=== PATIENT | male | born 1950 | race Caucasian/White ===

== ENCOUNTER 2017-09-20 11:14 | Inpatient (IN) | payer OTHER ==
[~2017-09-20] VITALS: Ht 172.7 cm; Wt 80.1 kg
[2017-09-20] MEDS ORDERED: PRAVASTATIN SOD40 M2 PO (11:33)
--- NOTE | 2017-09-20 12:29 | ED CARDIAC/CP/PALPITATIONS ---
History of Present Illness General Chief Complaint: General Adult Stated Complaint: SENT TO ED FROM GI LAB FOR BRADYCARDIA Source: patient, family Exam Limitations: no limitations Vital Signs & Intake/Output Vital Signs & Intake/Output Vital Signs Date Time Temp Pulse Resp B/P B/P Pulse O2 O2 Flow FiO2 Mean Ox Delivery Rate 09/22 0800 97 Room Air 09/22 0800 98.0 32 18 98/62 97 Room Air 09/22 0000 97.3 36 16 108/64 97 Room Air 09/21 1600 95 Room Air 09/21 1600 97.9 42 20 110/70 94 Room Air ED Intake and Output 09/22 0000 09/21 1200 Intake Total 1200 Output Total 1050 700 Balance 150 -700 Intake, Oral 1200 Output, Stool 0 Output, Urine 1050 700 Allergies Coded Allergies: NO KNOWN ALLERGIES (10/07/12) Reconcile Medications Pravastatin Sodium 40 MG TABLET 1 TAB PO DAILY CHOLESTEROL (Reported) Triage Note: RECEIVED 67 YO MALE FROM GI LAB SCHEDULED FOR COLONOSCOPY, PT WAS FOUND TO BE IN A JUNCTIONAL RHYTHM. 12 LEAD EKG SHOWS JUNCTIONAL ESCAPE RHYTHM. PT DENIES CHEST PAIN OR SOB, PT REPORTS SOME MILD EXERTIONAL SOB. PT CONNECTED TO TECHNOLOGY ANALYST. Triage Nurses Notes Reviewed? yes Onset: Gradual Timing: single episode today HPI: 67-year-old male with history of COPD, hyperlipidemia presents to emergency department from GI suite for bradycardia. Patient was scheduled for routine colonoscopy today. His heart rate was found to be low prior to initiation of sedation medications for GI procedure. Patient states that his heart rate has been low in the past however never this low, he has never seen a vp ad products and planning before. He states he has had normal EKGs performed at his primary care doctor's offices in the past. Patient currently has no symptoms, he feels in his usual state of health. His pain, dyspnea, lightheadedness, presyncope, abdominal pain. ([place] FOREMAN,Raine Lopez) Past History Travel History Traveled to [place] past 21 day No Medical History Any Pertinent Medical History? see below for history Neurological: NONE EENT: NONE Cardiovascular: hyperlipidemia Respiratory: COPD Gastrointestinal: NONE Hepatic: NONE Renal: NONE Musculoskeletal: NONE Psychiatric: NONE Endocrine: NONE Blood Disorders: NONE Cancer(s): NONE History of MRSA: No History of VRE: No History of CDIFF: No Surgical History Surgical History: non-contributory Psychosocial History Who do you live with Patient/Self Services at Home None What is your primary language Gambian Tobacco Use: Quit >30 days ago Family History Hx Contributory? No (Raine Hernandez) Review of Systems Review of Systems Constitutional: Reports: no symptoms. EENTM: Reports: no symptoms. Respiratory: Reports: no symptoms. Cardiovascular: Reports: see HPI. GI: Reports: no symptoms. Genitourinary: Reports: no symptoms. Musculoskeletal: Reports: no symptoms. Skin: Reports: no symptoms. Neurological/Psychological: Reports: no symptoms. Hematologic/Endocrine: Reports: no symptoms. Immunologic/Allergic: Reports: no symptoms. All Other Systems: Reviewed and Negative (Raine Hernandez) Physical Exam Physical Exam General Appearance: well developed/nourished, no apparent distress, alert, awake Head: atraumatic, normal appearance Eyes: Bilateral: normal appearance. Ears, Nose, Throat: hearing grossly normal Neck: normal inspection, supple, full range of motion Respiratory: normal breath sounds, no respiratory distress, lungs clear Cardiovascular: normal peripheral pulses, bradycardia Peripheral Pulses: 2+ radial (R), 2+ radial (L) Gastrointestinal: normal bowel sounds, soft, non-tender, no organomegaly Back: normal inspection, normal range of motion Extremities: normal inspection Neurologic/Psych: awake, alert, oriented x 3 Skin: intact, normal color, warm/dry Core Measures ACS in differential dx? Yes CVA/TIA Diagnosis No Sepsis Present: No Sepsis Focused Exam Completed? No (Raine Hernandez) Progress Differential Diagnosis: AMI, atrial fibrillation, hyperthyroid, WPW syndrome, electrolyte abnormality, thyroid disorder Plan of Care: Orders Procedure Date/time Status MAGNESIUM 09/23 0600 Active BASIC ELECTROLYTES PLUS BUN&CR 09/23 0600 Active EKG 09/22 1253 Active Transfer patient to 09/22 UNK Active Current Medications Sig/Allan Start time Last Medication Dose Stop Time Status Admin Dextrose/Sodium 1,000 ML Q13H 09/22 0815 AC Chloride (D5W-1/2 Normal Saline 1000ML) Atorvastatin Calcium 40 MG 1700 09/20 1700 AC 09/21 (Lipitor) 1551 Acetaminophen 650 MG Q6PRN PRN 09/20 1645 AC (Tylenol) Acetaminophen 1,000 MG Q6P PRN 09/20 1645 AC (Ofirmev) N/A 1 UNIT (No Carrier) Atropine Sulfate 0.5 MG ONE PRN 09/20 1645 AC (Atropine) Morphine Sulfate 2 MG Q6P PRN 09/20 1645 AC (MORPHINE SULFATE) Enoxaparin Sodium 40 MG Q24H 09/20 1637 AC 09/21 (Lovenox) 1551 Laboratory Tests 09/22/17 0445: Anion Gap 8, Estimated GFR > 60, Glucose 115 H, Calcium 8.9, Phosphorus 4.2, Magnesium 1.9, Total Bilirubin 1.0, AST 19, ALT 43, Albumin 3.[address] Martinez regarding this patient - he recommends telemetry observation. Patient is currently asymptomatic, in no acute distress, sitting in stretcher comfortably. No acute intervention required at this time. Dr. Dumont spoke with Dr. Adamson regarding telemetry observation. Following evaluation by hospitalist, decision made to upgrade this patient to ICU given worsening bradycardia. Diagnostic Imaging: Viewed by Me: Radiology Read. Discussed w/RAD: Radiology Read. CXR Impression: PATIENT: GEOVANI KINCAID PRESENT AGE: 67 PATIENT ACCOUNT NO: [id number] : 51 LOCATION: [facility] ORDERING PHYSICIAN: Raine FOREMAN SERVICE DATE: 09/20/17123 EXAM TYPE: RAD - XRY-PORTABLE CHEST XRAY EXAMINATION: XR PORTABLE CHEST CLINICAL INFORMATION: Bradycardia. COMPARISON: 11/08/2012 TECHNIQUE: Portable frontal view of the chest was obtained. FINDINGS: Interval resolution of the curvilinear opacity from the left lung. No new focal consolidation. No pleural effusion or pneumothorax. Heart size is normal. No acute osseous abnormality. EKG wires project over the chest. IMPRESSION: No acute radiographic abnormality. DICTATED BY: Rajwinder Perry MD DATE/TIME DICTATED:09/20/171403 FRAMING MECHANIC:THOMAS DATE/TIME TRANSCRIBED:09/20/171403 CONFIDENTIAL, DO NOT COPY WITHOUT APPROPRIATE AUTHORIZATION. <Electronically signed in Other Vendor System> SIGNED BY: Rajwinder Perry MD 09/20/17 9948 Initial ED EKG: JUNCTIONAL ESCAPE RHYTHM @34BPM Prior EKG: changed (10/07/12) ([place] FOREMAN,Raine Lopez) Departure Departure Disposition: STILL A PATIENT Condition: Stable Clinical Impression Primary Impression: Ventricular escape rhythm Secondary Impressions: Bradycardia Referrals: Claude Thomas MD (PCP/Family) Departure Forms: Customer Survey General Discharge Information Admission Note Spoke With: Eliu Adamson MD Documentation of Exam: Documentation of any treatments & extenuating circumstances including Concerns Regarding Discharge (functional status, medication knowledge or non-compliance, living conditions, etc.) that warrant an admission rather than observation: [ Bradycardia with junctional escape rhythm requiring ICU monitoring, cardiology consult, trend EKGs and troponins, premature discharge medically unsafe.] (Raine Hernandez) PA/DIRECTOR STARS Co-Sign Statement Statement: ED Attending supervision documentation- [X] I saw and evaluated the patient. I have also reviewed all the pertinent lab results and diagnostic results. I agree with the findings and the plan of care as documented in the PA's/DIRECTOR STARS's documentation. [] I have reviewed the ED Record and agree with the PA's/DIRECTOR STARS's documentation. [] Additions or exceptions (if any) to the PAs/DIRECTOR STARS's note and plan are summarized below: [] (Vineet Dumont DO) Critical Care Note Critical Care Note Critical Care Time: 30-74 min (Raine Hernandez) Spoke with Dr. Martinez regarding this patient - he recommends telemetry observation. Patient is currently asymptomatic, in no acute distress, sitting in stretcher comfortably. No acute intervention required at this time. Dr. Dumont spoke with Dr. Adamson regarding telemetry observation. Following evaluation by hospitalist, decision made to upgrade this patient to ICU given worsening bradycardia. (Raine Hernandez) (Vineet Dumont DO) Departure Departure Disposition: STILL A PATIENT Condition: Stable Clinical Impression Primary Impression: Ventricular escape rhythm Secondary Impressions: Bradycardia Referrals: Claude Thomas MD (PCP/Family) Departure Forms: Customer Survey General Discharge Information Admission Note Spoke With: Eliu Adamson MD Documentation of Exam: Documentation of any treatments & extenuating circumstances including Concerns Regarding Discharge (functional status, medication knowledge or non-compliance, living conditions, etc.) that warrant an admission rather than observation: [ Bradycardia with junctional escape rhythm requiring ICU monitoring, cardiology consult, trend EKGs and troponins, premature discharge medically unsafe.] (Raine Hernandez) PA/DIRECTOR STARS Co-Sign Statement Statement: ED Attending supervision documentation- [X] I saw and evaluated the patient. I have also reviewed all the pertinent lab results and diagnostic results. I agree with the findings and the plan of care as documented in the PA's/DIRECTOR STARS's documentation. [] I have reviewed the ED Record and agree with the PA's/DIRECTOR STARS's documentation. [] Additions or exceptions (if any) to the PAs/DIRECTOR STARS's note and plan are summarized below: [] (Vineet Dumont DO) Critical Care Note Critical Care Note Critical Care Time: 30-74 min ([place] FOREMAN,Raine Lopez)
[2017-09-20 12:44] LABS: ABSOLUTE BASOPHIL COUNT 0 /CUMM (0.0-0.2); ABSOLUTE EOSINOPHIL COUNT 0.1 /CUMM (0.0-0.7); ABSOLUTE LYMPH COUNT 1.5 /CUMM (1.2-3.4); ABSOLUTE MONOCYTE COUNT 0.4 /CUMM (0.10-0.60); BASOPHIL % 0.5 % (0.0-2.0); EOSINOPHIL % 2.6 % (0-5); GRANULOCYTE % 58.9 % (42.2-75.2); HEMATOCRIT 42.2 % (42-52); MEAN CORPUSCULAR HGB 30.4 PG (27.0-31.0); MEAN CORPUSCULAR HGB CONC 34.9 G/DL (33.0-37.0); MEAN CORPUSCULAR VOLUME 87.2 FL (80.0-94.0); MEAN PLATELET VOLUME 8.1 FL (7.4-10.4); PLATELET COUNT 205 /CUMM (130-400); RBC DISTRIBUTION WIDTH 13.6 % (11.5-14.5); RED BLOOD CELL CT 4.84 /CUMM (4.70-6.10)
[2017-09-20 12:59] LABS: PTT 31 SEC (25-37)
--- NOTE | 2017-09-20 14:15 | History & Physical ---
Bhupendra Guadalupe 09/20/17 1415: General Information and HPI Allergies/Medications Allergies: Coded Allergies: NO KNOWN ALLERGIES (10/07/12) Home Med list Pravastatin Sodium 40 MG TABLET 1 TAB PO DAILY CHOLESTEROL (Reported) Past History Travel History Traveled to [place] past 21 day No Medical History Neurological: NONE EENT: NONE Cardiovascular: hyperlipidemia Respiratory: COPD Gastrointestinal: NONE Hepatic: NONE Renal: NONE Musculoskeletal: NONE Psychiatric: NONE Endocrine: NONE Blood Disorders: NONE Cancer(s): NONE History of MRSA: No History of VRE: No History of CDIFF: No Past Family/Social History Psychosocial History Services at Home: None Core Measures/Misc (11/13) Sepsis (View protocol) If YES complete Sepsis Event Note If YES complete Sepsis Event Note Shoshana Calderon MD 09/20/17 1442: Core Measures/Misc (11/13) Sepsis (View protocol) If YES complete Sepsis Event Note If YES complete Sepsis Event Note Resident Review Statement Other Findings: 67-year-old gentleman with past medical history of COPD, hyperlipidemia was sent from GI GI suite with EKG evidence of junctional rhythm. Patient was scheduled for colonoscopy today. Patient last admission at [facility] for pneumonia. Admission vital signs Temperature 98, pulse 42, respiratory rate 18, blood pressure 158/79, saturating 98 at room air Admission labs WBC 5, hemoglobin 14.7, platelet 205, sodium 141, potassium 4.2, BUN 12, creatinine 0.8, troponin 0 0.01 Pam Sandhu MD 09/20/17 1604: Core Measures/Misc (11/13) Sepsis (View protocol) If YES complete Sepsis Event Note If YES complete Sepsis Event Note Attending MD Review Statement Attending Statement Attending MD Statement: examined this patient, discuss w/resident/PA/PROCESS EXPERT, agreed w/resident/PA/PROCESS EXPERT, reviewed EMR data (avail), discussed with nursing, discussed with case mgmt, amended to note Attending Assessment/Plan: 67-year-old male with history of dyslipidemia presented to the endoscopy suite for routine follow-up colonoscopy. Colonoscopy was for follow-up of benign polyps noted on previous colonoscopy. In the unit he was found to be bradycardic with heart rate in the 30s to 40s. This was confirmed on EKG and was sent to the emergency room for further evaluation. Patient has been asymptomatic all through. He does admit that he has history of bradycardia. He however has not been evaluated by senior cisco network engineer in the past. He denies any tick bites. He is not on any medication that would cause bradycardia. TSH is within normal limits.Denies any dizziness. Denies any palpitations. Denies any chest pains. While evaluating him desaturated was predominantly 30s occasionally in the 20s. On examination he has no jugular venous distention. No audible murmur. Lungs are clear bilaterally. He has no peripheral edema. Labs showed no electrolyte abnormalities. EKG shows junctional rhythm. Plan: -Admit to the intensive care unit -Place pacer pads -Check Lyme titer -Trend troponins. Obtain echocardiogram. Urgent Cardiology consultation. -Keep n.p.o. past midnight for possible pacemaker in the morning..
--- NOTE | 2017-09-20 14:28 | RADIOLOGY REPORT ---
EXAMINATION: XR PORTABLE CHEST CLINICAL INFORMATION: Bradycardia. COMPARISON: 11/08/2012 TECHNIQUE: Portable frontal view of the chest was obtained. FINDINGS: Interval resolution of the curvilinear opacity from the left lung. No new focal consolidation. No pleural effusion or pneumothorax. Heart size is normal. No acute osseous abnormality. EKG wires project over the chest. IMPRESSION: No acute radiographic abnormality.
--- NOTE | 2017-09-20 16:40 | History & Physical ---
Shoshana Calderon MD 09/20/17 1640: General Information and HPI MD Statement: I have seen and personally examined GEOVANI KINCAID and documented this H&P. The patient is a 67 year old M who presented with a patient stated chief complaint of [bradycardia]. Source of Information: patient, family History of Present Illness: 67-year-old gentleman with past medical history of hyperlipidemia was sent from the GI suite with EKG finding of junctional escape rhythm. Apparently patient was in usual state of health until today morning, went to the GI suite for his routine colonoscopy. During the time of procedure patient had bradycardia and the EKG rhythm showed junctional escape rhythm and hence he was sent to ED for further evaluation. Patient denies chest pain, nausea, vomiting, palpitation, diaphoresis, shortness of breath, fever, chills, recent tick bite, sick contacts , travel, abdominal pain, constipation, diarrhea, hematuria. Patient has never seen a senior maintenance mechanic in the past. According to the patient he says he has bradycardia since adolescent age. Allergies/Medications Allergies: Coded Allergies: NO KNOWN ALLERGIES (10/07/12) Home Med list Pravastatin Sodium 40 MG TABLET 1 TAB PO DAILY CHOLESTEROL (Reported) Past History Travel History Traveled to [place] past 21 day No Medical History Neurological: NONE EENT: NONE Cardiovascular: hyperlipidemia Respiratory: COPD Gastrointestinal: NONE Hepatic: NONE Renal: NONE Musculoskeletal: NONE Psychiatric: NONE Endocrine: NONE Blood Disorders: NONE Cancer(s): NONE History of MRSA: No History of VRE: No History of CDIFF: No Surgical History Surgical History: none Past Family/Social History Family History Relations & Conditions if any Relation not specified for: *No pertinent family history Psychosocial History Where do you live? Home Who Do You Live With? child Services at Home: None Primary Language: Serbian Smoking Status: Never Smoked ETOH Use: occasional use Functional Ability ADLs Independent: dressing, eating, toileting, bathing. Ambulation: independent IADLs Independent: shopping, housework, finances, food prep, telephone, transportation , medication admin. Review of Systems Review of Systems Constitutional: Reports: no symptoms. Cardiovascular: Reports: no symptoms. Respiratory: Reports: no symptoms. Genitourinary: Reports: no symptoms. Exam & Diagnostic Data Last 24 Hrs of Vital Signs/I&O Vital Signs Date Time Temp Pulse Resp B/P B/P Pulse O2 O2 Flow FiO2 Mean Ox Delivery Rate 09/20 1504 97.5 40 18 142/84 97 Room Air 09/20 1237 98 Room Air 09/20 1127 98.0 42 18 158/79 98 Room Air Intake & Output 09/20 1600 09/20 0800 09/20 0000 Intake Total 1000 Output Total Balance 1000 Intake, IV 1000 Patient 185 lb Weight Weight Estimated Measurement Method Physical Exam General Appearance Alert, Oriented X3, Cooperative, No Acute Distress HEENT Atraumatic Cardiovascular Regular Rate, Normal S1, Normal S2 Lungs Clear to Auscultation Abdomen Normal Bowel Sounds, Soft, No Tenderness, No Hepatospenomegaly Neurological Normal Speech, Strength at 5/5 X4 Ext, Normal Tone, Sensation Intact, Cranial Nerves 3-12 NL Extremities No Cyanosis, No Edema Last 24 Hrs of Labs/Wally: Laboratory Tests 09/20/17 1234: Anion Gap 10, Estimated GFR > 60, BUN/Creatinine Ratio 15.0, Glucose 105 H, Calcium 9.1, Magnesium 1.9, Total Bilirubin 1.6 H, AST 27, ALT 54, Alkaline Phosphatase 53, Troponin I < 0.01, Total Protein 5.9 L, Albumin 3.5, Globulin 2.4, Albumin/Globulin Ratio 1.5, TSH 1.280, Free T4 0.95, PT 12.0, INR 1.10, APTT 31, CBC w Diff NO MAN DIFF REQ, RBC 4.84, MCV 87.2, MCH 30.4, MCHC 34.9, RDW 13.6, MPV 8.1, Gran % 58.9, Lymphocytes % 29.1, Monocytes % 8.9, Eosinophils % 2.6, Basophils % 0.5, Absolute Granulocytes 3.0, Absolute Lymphocytes 1.5, Absolute Monocytes 0.4, Absolute Eosinophils 0.1, Absolute Basophils 0, Lyme Disease Antibody Cancelled Diagnostic Data EKG Results JUNCTIONAL ESCAPE RYTHM HR-30S Assessment/Plan Assessment: 67-year-old gentleman with past medical history of hyperlipidemia was sent from the GI suite with EKG finding of junctional escape rhythm. Patient last admission at [facility] for pneumonia in 2012 Admission vital signs Temperature 98, pulse 42, respiratory rate 18, blood pressure 158/79, saturating 98 at room air Admission labs WBC 5, hemoglobin 14.7, platelet 205, sodium 141, potassium 4.2, BUN 12, creatinine 0.8, troponin 0.01 EKG-junctional escape rhythm with a heart rate 30s. Assessment and plan 1. Bradycardia-patient needs echocardiogram and telemetry monitoring. Cardiology consulted who suggested to keep him n.p.o. for possible pacemaker. We will keep pacer pads and atropine by the bedside. We will check a Lyme titer. Follow-up troponin and EKG. Echocardiogram ordered. 2. Hyperlipidemia-continue statin. Patient will be admitted in ICU for close monitoring. Code-full code Diet-heart healthy diet N.p.o. from midnight DVT prophylaxis-Lovenox As Ranked By This Provider Problem List: 1. Ventricular escape rhythm 2. Bradycardia Core Measures/Misc (11/13) Acute Coronary Syndrome ACS Diagnosis: No Congestive Heart Failure Congestive Heart Failure Diagnosis No Cerebrovascular Accident CVA/TIA Diagnosis: No VTE (View Protocol) VTE Risk Factors Age>40 No Mechanical VTE Prophylaxis d/t Other No VTE Pharm Prophylaxis d/t Other Sepsis (View protocol) Sepsis Present: No If YES complete Sepsis Event Note If YES complete Sepsis Event Note Pam Sandhu MD 09/21/17 0125: Core Measures/Misc (11/13) Sepsis (View protocol) If YES complete Sepsis Event Note If YES complete Sepsis Event Note Attending MD Review Statement Attending Statement Attending MD Statement: examined this patient, discuss w/resident/PA/WATER TREATMENT PLANT SUPERVISOR, agreed w/resident/PA/WATER TREATMENT PLANT SUPERVISOR, reviewed EMR data (avail), discussed with nursing, reviewed images, amended to note Attending Assessment/Plan: 67-year-old male with history of dyslipidemia presented to the endoscopy suite for routine follow-up colonoscopy. Colonoscopy was for follow-up of benign polyps noted on previous colonoscopy. In the unit he was found to be bradycardic with heart rate in the 30s to 40s. This was confirmed on EKG and was sent to the emergency room for further evaluation. Patient has been asymptomatic all through. He does admit that he has history of bradycardia. He however has not been evaluated by senior maintenance mechanic in the past. He denies any tick bites. He is not on any medication that would cause bradycardia. TSH is within normal limits.Denies any dizziness. Denies any palpitations. Denies any chest pains. While evaluating him desaturated was predominantly 30s occasionally in the 20s. On examination he has no jugular venous distention. No audible murmur. Lungs are clear bilaterally. He has no peripheral edema. Labs showed no electrolyte abnormalities. EKG shows junctional rhythm. Plan: -Admit to the intensive care unit -Place pacer pads -Check Lyme titer -Trend troponins. Obtain echocardiogram. Urgent Cardiology consultation. -Keep n.p.o. past midnight for possible pacemaker in the morning..
--- NOTE | 2017-09-20 20:06 | Cons- Cardiology ---
General Information and HPI Consulting Request Date of Consult: 09/20/17 Requested By: Pam Sandhu MD Reason for Consult: Bradycardia History of Present Illness: The patient is a 67-year-old male with history of hyperlipidemia who is admitted for bradycardia. He was in the GI suite preparing for a routine colonoscopy when he was found to be in a junctional bradycardia with rate in the 30s. The procedure was canceled and he was transferred to the emergency room. During evaluation in the emergency department he continued to be in a junctional rhythm , and his heart rate was observed to drop as low as the high 20s. He notes occasional lightheadedness and dizziness, however he has not been symptomatic today. No syncope. No orthopnea. No diaphoresis. No nausea or vomiting. No palpitations. No prior history of known cardiac disease. The patient reports that he was advised by his primary care physician that his heart rate was relatively slow for the past year or two. Allergies/Medications Allergies: Coded Allergies: NO KNOWN ALLERGIES (10/07/12) Home Med List: Pravastatin Sodium 40 MG TABLET 1 TAB PO DAILY CHOLESTEROL (Reported) Current Medications: Current Medications Sig/Allan Start time Last Medication Dose Route Stop Time Status Admin Acetaminophen 650 MG Q6PRN PRN 09/20 1645 AC PO Acetaminophen 1,000 MG Q6P PRN 09/20 1645 AC N/A 1 UNIT IV Atorvastatin Calcium 40 MG 1700 09/20 1700 AC 09/20 PO 1820 Atropine Sulfate 0.5 MG ONE PRN 09/20 1645 AC IV Enoxaparin Sodium 0 .STK-MED ONE 09/20 1733 DC SC Enoxaparin Sodium 40 MG Q24H 09/20 1637 AC 09/20 SC 1820 Morphine Sulfate 2 MG Q6P PRN 09/20 1645 AC IV Review of Systems Review of Systems: No fever. No chills. No hemoptysis. No ematemesis. All other systems were reviewed, and were noted to be negative. Past History Travel History Traveled to [place] past 21 day No Medical History Blood Transfusion Hx: No Neurological: NONE EENT: NONE Cardiovascular: hyperlipidemia Respiratory: COPD Gastrointestinal: NONE Hepatic: NONE Renal: NONE Musculoskeletal: NONE Psychiatric: NONE Endocrine: NONE Blood Disorders: NONE Cancer(s): NONE Surgical History Surgical History: non-contributory Family History Relations & Conditions If Any: MOTHER Heart disease Psychosocial History Where Do You Live? Home Who Do You Live With? child Services at Home: None Primary Language: Georgian Smoking Status: Former Smoker ETOH Use: occasional use Functional Ability ADLs Independent: dressing, eating, toileting, bathing. Ambulation: independent IADLs Independent: shopping, housework, finances, food prep, telephone, transportation , medication admin. Exam & Diagnostic Data Vital Signs and I&O Vital Signs Date Time Temp Pulse Resp B/P B/P Pulse O2 O2 Flow FiO2 Mean Ox Delivery Rate 09/20 1855 97 Room Air 09/20 1748 96 Room Air 09/20 1747 36 18 146/86 96 Room Air 09/20 1504 97.5 40 18 142/84 97 Room Air 09/20 1237 98 Room Air 09/20 1127 98.0 42 18 158/79 98 Room Air Intake & Output 09/20 1600 09/20 0800 09/20 0000 09/19 1600 09/19 0800 09/19 0000 Intake Total 1000 Output Total Balance 1000 Intake, IV 1000 Patient 185 lb Weight Weight Estimated Measurement Method Physical Exam: Gen: The patient is in no acute distress HEENT: Normal nose, ears, and oropharynx. Pupils equal bilaterally. Conjunctiva normal. Neck: Supple with no JVD, no masses, and no thyromegaly Lungs: Clear to auscultation with normal respiratory effort Heart: luis, S1, S2, no murmurs. No peripheral edema, 2+ pulses in the lower extremities bilaterally Abdomen: Soft, nontender, no masses. No hepatomegaly. No splenomegaly Extremities: No clubbing or cyanosis. Normal muscle strength in the upper and lower extremities Skin: Normal skin turgor with no skin ulcers or lesions noted. Neuro: Cranial nerves intact. Sensation intact Psych: Alert and oriented x 3 with appropriate affect Labs/Wally Results: Laboratory Tests 09/20 09/20 1850 1234 Chemistry Sodium (137 - 145 mmol/L) 141 Potassium (3.5 - 5.1 mmol/L) 4.2 Chloride (98 - 107 mmol/L) 107 Carbon Dioxide (22 - 30 mmol/L) 25 Anion Gap (5 - 16) 10 BUN (9 - 20 mg/dL) 12 Creatinine (0.7 - 1.2 mg/dL) 0.8 Estimated GFR (>60 ml/min) > 60 BUN/Creatinine Ratio (7 - 25 %) 15.0 Glucose (65 - 99 mg/dL) 105 H Calcium (8.4 - 10.2 mg/dL) 9.1 Magnesium (1.6 - 2.3 mg/dL) 1.9 Total Bilirubin (0.2 - 1.3 mg/dL) 1.6 H AST (17 - 59 U/L) 27 ALT (21 - 72 U/L) 54 Alkaline Phosphatase (< 127 U/L) 53 Troponin I (<0.11 ng/ml) Pending < 0.01 Total Protein (6.3 - 8.2 g/dL) 5.9 L Albumin (3.5 - 5.0 g/dL) 3.5 Globulin (1.9 - 4.2 gm/dL) 2.4 Albumin/Globulin Ratio (1.1 - 2.2 %) 1.5 TSH (0.270 - 4.200 uIU/mL) 1.280 Free T4 (0.78 - 2.44 ng/dL) 0.95 Coagulation PT (9.4 - 12.5 SEC) 12.0 INR (0.90 - 1.17) 1.10 APTT (25 - 37 SEC) 31 Hematology CBC w Diff NO MAN DIFF REQ WBC (4.8 - 10.8 /CUMM) 5.0 RBC (4.70 - 6.10 /CUMM) 4.84 Hgb (14.0 - 18.0 G/DL) 14.7 Hct (42 - 52 %) 42.2 MCV (80.0 - 94.0 FL) 87.2 MCH (27.0 - 31.0 PG) 30.4 MCHC (33.0 - 37.0 G/DL) 34.9 RDW (11.5 - 14.5 %) 13.6 Plt Count (130 - 400 /CUMM) 205 MPV (7.4 - 10.4 FL) 8.1 Gran % (42.2 - 75.2 %) 58.9 Lymphocytes % (20.5 - 51.1 %) 29.1 Monocytes % (1.7 - 9.3 %) 8.9 Eosinophils % (0 - 5 %) 2.6 Basophils % (0.0 - 2.0 %) 0.5 Absolute Granulocytes (1.4 - 6.5 /CUMM) 3.0 Absolute Lymphocytes (1.2 - 3.4 /CUMM) 1.5 Absolute Monocytes (0.10 - 0.60 /CUMM) 0.4 Absolute Eosinophils (0.0 - 0.7 /CUMM) 0.1 Absolute Basophils (0.0 - 0.2 /CUMM) 0 Serology Lyme Disease Antibody Cancelled Diagnostic Data EKG Results EKG tracings independently reviewed, and reveals junctional escape rhythm at a rate of 34 bpm, left axis deviation, nonspecific ST abnormality CXR Results Negative Assessment/Plan Assessment/Plan The patient is a 67-year-old male with no cardiac history who presented for routine colonoscopy and was found to be in a junctional escape rhythm in the 30s. His heart rate has occasionally dropped to the high 20s. He has a remote history of extensive alcohol abuse, however he is not currently drinking. He is currently asymptomatic, however he does note intermittent lightheadedness and dizziness which is most likely secondary to episodes of bradycardia. Recommendations: * Monitor in ICU * Apply transcutaneous pacing pads but avoid pacing as the patient becomes symptomatic. * If the patient becomes symptomatic or if he has prolonged periods of heart rates less than 30, would consider starting a dopamine drip * N.p.o. after midnight * Possible permanent pacemaker placement tomorrow * Echocardiogram Consult Acknowledgment - Thank you for your consult request.
[2017-09-21] VITALS: BP 132/68
[2017-09-21 08:00] VITALS: BP 1616/80
--- NOTE | 2017-09-21 10:12 | PN- Cardiology ---
Subjective Subjective: Feeling mostly well. He has been staying in bed, and did not have any symptoms overnight. He notes that recently as an outpatient he has been having intermittent lightheadedness with standing up quickly or walking. He remains in junctional escape rhythm alternating with sinus rhythm. Rate is primarily in the 30s, occasionally dropping into the high 20s. No chest pain. No palpitations. No nausea or vomiting. No shortness of breath. Objective Vital Signs and I&Os Vital Signs Date Time Temp Pulse Resp B/P B/P Pulse O2 O2 Flow FiO2 Mean Ox Delivery Rate 09/21 0800 95 Room Air 09/21 0800 96.9 36 20 1616/80 95 Room Air 09/21 0000 98.4 44 14 132/68 98 Room Air 09/20 1855 97 Room Air 09/20 1748 96 Room Air 09/20 1747 36 18 146/86 96 Room Air 09/20 1504 97.5 40 18 142/84 97 Room Air 09/20 1237 98 Room Air 09/20 1127 98.0 42 18 158/79 98 Room Air Intake & Output 09/21 1600 09/21 0800 09/21 0000 09/20 1600 09/20 0800 09/20 0000 Intake Total 360 1000 Output Total 700 450 Balance -700 -90 1000 Intake, IV 1000 Intake, Oral 360 Output, Urine 700 450 Patient 194 lb 185 lb Weight Weight Bed scale Estimated Measurement Method Physical Exam: Gen: The patient is in no acute distress HEENT: Normal nose, ears, and oropharynx. Pupils equal bilaterally. Conjunctiva normal. Neck: Supple with no JVD, no masses, and no thyromegaly Lungs: Clear to auscultation with normal respiratory effort Heart: luis, S1, S2, no murmurs. No peripheral edema, 2+ pulses in the lower extremities bilaterally Abdomen: Soft, nontender, no masses. No hepatomegaly. No splenomegaly Extremities: No clubbing or cyanosis. Normal muscle strength in the upper and lower extremities Skin: Normal skin turgor with no skin ulcers or lesions noted. Neuro: Cranial nerves intact. Sensation intact Current Medications: Current Medications Sig/Allan Start time Last Medication Dose Route Stop Time Status Admin Acetaminophen 650 MG Q6PRN PRN 09/20 1645 AC PO Acetaminophen 1,000 MG Q6P PRN 09/20 1645 AC N/A 1 UNIT IV Atorvastatin Calcium 40 MG 1700 09/20 1700 AC 07/25 PO 1820 Atropine Sulfate 0.5 MG ONE PRN 09/20 1645 AC IV Enoxaparin Sodium 0 .STK-MED ONE 09/20 1733 DC SC Enoxaparin Sodium 40 MG Q24H 09/20 1637 AC 09/20 SC 1820 Morphine Sulfate 2 MG Q6P PRN 09/20 1645 AC IV Results Last 48 Hrs of Labs/Mics: Laboratory Tests 09/21/17 0525: Anion Gap 8, Estimated GFR > 60, Glucose 107 H, Calcium 9.0, Phosphorus 4.2, Magnesium 1.9, Total Bilirubin 1.2, AST 23, ALT 46, Albumin 3.5 09/21/17 0100: Troponin I < 0.01, Lyme Disease Antibody Cancelled 09/20/17 1850: Troponin I < 0.01 09/20/17 1234: Lyme Disease Antibody Pending 09/20/17 1234: Anion Gap 10, Estimated GFR > 60, BUN/Creatinine Ratio 15.0, Glucose 105 H, Calcium 9.1, Magnesium 1.9, Total Bilirubin 1.6 H, AST 27, ALT 54, Alkaline Phosphatase 53, Troponin I < 0.01, Total Protein 5.9 L, Albumin 3.5, Globulin 2.4, Albumin/Globulin Ratio 1.5, TSH 1.280, Free T4 0.95, PT 12.0, INR 1.10, APTT 31, CBC w Diff NO MAN DIFF REQ, RBC 4.84, MCV 87.2, MCH 30.4, MCHC 34.9, RDW 13.6, MPV 8.1, Gran % 58.9, Lymphocytes % 29.1, Monocytes % 8.9, Eosinophils % 2.6, Basophils % 0.5, Absolute Granulocytes 3.0, Absolute Lymphocytes 1.5, Absolute Monocytes 0.4, Absolute Eosinophils 0.1, Absolute Basophils 0, Lyme Disease Antibody Cancelled Assessment/Plan Assessment/Plan Assessment: * Junctional bradycardia with heart rate dropping into the 20s, intermittently symptomatic Plan: * Continue to monitor in ICU * Pacemaker scheduled for tomorrow at 12:[address] Thomas * N.p.o. after midnight * Echocardiogram * Check Lyme titer * If the patient becomes symptomatic or if he has prolonged periods of heart rates less than 30, would consider starting a dopamine drip Continue telemetry? Yes
--- NOTE | 2017-09-21 10:53 | PN- Resident CRCU ---
Subjective HPI/CRCU Issues: Bradycardia 24 Hour Events: No acute events overnight. Patient has been in bradycardia but remained asymptomatic. Overnight his heart rate transiently dropped below 30. Objective Vital Signs & I&O Last 8 Hrs of Vitals and I&O: . Exam General Appearance: well developed/nourished, no apparent distress, alert, awake , comfortable Head: atraumatic, normal appearance Respiratory: normal breath sounds, chest non-tender, lungs clear Cardiovascular: bradycardia Gastrointestinal: soft, non-tender Extremities: no edema Cranial Nerves: normal hearing, normal speech Skin: intact, normal color Skin Temp/Moisture Exam: Warm/Dry Sepsis Skin Exam (color): Normal for Ethnicity Current Medications: Current Medications Sig/Allan Start time Last Medication Dose Route Stop Time Status Admin Acetaminophen 650 MG Q6PRN PRN 09/20 1645 AC PO Acetaminophen 1,000 MG Q6P PRN 09/20 1645 AC N/A 1 UNIT IV Atorvastatin Calcium 40 MG 1700 09/20 1700 AC 09/20 PO 1820 Atropine Sulfate 0.5 MG ONE PRN 09/20 1645 AC IV Enoxaparin Sodium 0 .STK-MED ONE 09/20 1733 DC SC Enoxaparin Sodium 40 MG Q24H 09/20 1637 AC 09/20 SC 1820 Morphine Sulfate 2 MG Q6P PRN 09/20 1645 AC IV Impression/Plan Impression/Problem List Impression: 67-year-old gentleman with past medical history of hyperlipidemia was sent from the GI suite with EKG finding of junctional escape rhythm. During the time of procedure the patient was noticed to be bradycardic and the EKG rhythm showed junctional escape rhythm and hence he was sent to ED for further evaluation. Assessment: 1. Junctional Bradycardia 2. History of Hyperlipidemia Plan: * Continue monitoring in the ICU for now. * His Lyme titre was negative * Keep pacer pads on * If the patient becomes symptomatic or his heart rate remains below 30 for prolonged period, he can be started on dopamine * Pacemaker placement in OR tomorrow. * He will be NPO after midnight for the procedure * Echocardiogram - pending * Diet: Regular * DVT Prophylaxis: SC Enoxaparin * Code Status: Full Code Problem List: 1. Bradycardia Pain Ratin Tomorrow's Labs & Rationales: ICU bundle Plan DVT/Prophylaxis: mechanical
[2017-09-21 16:00] VITALS: BP 110/70
--- NOTE | 2017-09-21 16:15 | Cons- Thoracic Surgery ---
General Information and HPI Consulting Request Date of Consult: 09/21/17 Requested By: Jaiden Martinez MD Reason for Consult: Bradycardia, evaluate for permanent pacemaker placement Source of Information: patient, old records, PCP Exam Limitations: no limitations History of Present Illness: The patient is a 67-year-old gentleman admitted from the GI suite with a junctional bradycardia. Patient has had heart rates below 30 while on observation with occasional junctional rhythm mixing with a significant sinus bradycardia. He is admitted for observation referral is made for placement of a permanent pacemaker. Of note is that the patient has been told by his primary care physician in the past that his heart rate is low along the line the type of rate seen in athletes. No recommendation was ever made for him to see cardiology evaluation. Allergies/Medications Allergies: Coded Allergies: NO KNOWN ALLERGIES (10/07/12) Home Med List: Pravastatin Sodium 40 MG TABLET 1 TAB PO DAILY CHOLESTEROL (Reported) Current Medications: Current Medications Sig/Allan Start time Last Medication Dose Route Stop Time Status Admin Acetaminophen 650 MG Q6PRN PRN 09/20 1645 AC PO Acetaminophen 1,000 MG Q6P PRN 09/20 1645 AC N/A 1 UNIT IV Atorvastatin Calcium 40 MG 1700 09/20 1700 AC 09/21 PO 1551 Atropine Sulfate 0.5 MG ONE PRN 09/20 1645 AC IV Enoxaparin Sodium 0 .STK-MED ONE 09/20 1733 CAN SC Enoxaparin Sodium 40 MG Q24H 09/20 1637 AC 09/21 SC 1551 Morphine Sulfate 2 MG Q6P PRN 09/20 1645 AC IV Past History Medical History Blood Transfusion Hx: No Neurological: NONE EENT: NONE Cardiovascular: hyperlipidemia Respiratory: COPD Gastrointestinal: NONE Hepatic: NONE Renal: NONE Musculoskeletal: NONE Psychiatric: NONE Endocrine: NONE Blood Disorders: NONE Cancer(s): NONE Surgical History Pertinent Surgical History: non-contributory Family History Relations & Conditions If Any: MOTHER Heart disease Psychosocial History Where Do You Live? Home Who Do You Live With? child Services at Home: None Primary Language: Azerbaijani Smoking Status: Former Smoker ETOH Use: occasional use Functional Ability ADLs Independent: dressing, eating, toileting, bathing. Ambulation: independent IADLs Independent: shopping, housework, finances, food prep, telephone, transportation , medication admin. Review of Systems Review of Systems: The patient reports occasional lightheadedness and dizziness. He is not symptomatic since hospitalization. He has had no esequiel syncope. He has noted no palpitations. He has had no nausea or vomiting. Has had no anginal type chest pain or exertional dyspnea. The rest of his 12 point review of systems is unremarkable. Exam & Diagnostic Data Vital Signs and I&O Vital Signs Date Time Temp Pulse Resp B/P B/P Pulse O2 O2 Flow FiO2 Mean Ox Delivery Rate 09/21 1600 97.9 42 20 110/70 94 Room Air 09/21 0800 95 Room Air 09/21 0800 96.9 36 20 1616/80 95 Room Air 09/21 0000 98.4 44 14 132/68 98 Room Air 09/20 1855 97 Room Air 09/20 1748 96 Room Air 09/20 1747 36 18 146/86 96 Room Air Intake & Output 09/21 1600 09/21 0800 09/21 0000 09/20 1600 09/20 0800 09/20 0000 Intake Total 360 1000 Output Total 700 450 Balance -700 -90 1000 Intake, IV 1000 Intake, Oral 360 Output, Urine 700 450 Patient 194 lb 185 lb Weight Weight Bed scale Estimated Measurement Method Physical Exam: On physical examination he is sitting in bed resting comfortably. His skin is warm and well perfused with no suspicious lesions noted. The sclerae are anicteric and his mucous membranes are moist. There is no cervical or supraclavicular lymphadenopathy. His breath sounds are clear and full bilaterally with no wheezes rhonchi noted. The cardiac exam shows an irregular rhythm and rate with no murmurs or sounds. The abdomen is soft and nontender with no masses. The periphery shows no cyanosis clubbing or edema. His neurologic exam is grossly normal motor and sensory function. Last 24 Hours of Labs: Laboratory Tests 09/21 09/21 09/20 0525 0100 1850 Chemistry Sodium (137 - 145 mmol/L) 140 Potassium (3.5 - 5.1 mmol/L) 4.2 Chloride (98 - 107 mmol/L) 106 Carbon Dioxide (22 - 30 mmol/L) 26 Anion Gap (5 - 16) 8 BUN (9 - 20 mg/dL) 13 Creatinine (0.7 - 1.2 mg/dL) 0.9 Estimated GFR (>60 ml/min) > 60 Glucose (65 - 99 mg/dL) 107 H Calcium (8.4 - 10.2 mg/dL) 9.0 Phosphorus (2.5 - 4.5 mg/dL) 4.2 Magnesium (1.6 - 2.3 mg/dL) 1.9 Total Bilirubin (0.2 - 1.3 mg/dL) 1.2 AST (17 - 59 U/L) 23 ALT (21 - 72 U/L) 46 Troponin I (<0.11 ng/ml) < 0.01 < 0.01 Albumin (3.5 - 5.0 g/dL) 3.5 Serology Lyme Disease Antibody Cancelled Other Results: On pvc monitor while I am in the room the patient is his alternating between sinus rhythm in the low 40s and a junctional rhythm in the 30s. Assessment/Plan Assessment/Plan 67-year-old with symptomatic bradycardia in the form of a junctional bradycardia escape rhythm and sick sinus syndrome. I think a pacemaker is clearly indicated. I suspect that the patient will have a general improvement with resolution of his dizziness and lightheadedness and probably a general sense of feeling better. The risks and benefits of the procedure including infection pneumothorax bleeding and cardiac perforation were explained and he understands and agrees. We will proceed tomorrow with a dual-chamber MRI compatible permanent pacemaker. Consult Acknowledgment - Thank you for your consult request.
--- NOTE | 2017-09-21 20:21 | ECHOCARDIOGRAM REPORT ---
GEOVANI KINCAID Age: 67 : 1950 Gender: M Exam Date: 09/21/2017 10:39 Exam Location: [facility] Ht (in): 68 Wt (lb): 194 BSA: 2.08 BP: 128 / 91 Ordering Physician: Benji Cowan MD Referring Physician: Benji Cowan MD Technologist: Hung Taveras [facility] Room Number: 105-1 Indications: Cardiac arrhythmia, unspecified Rhythm: Sinus Technical Quality: Good FINDINGS Left Ventricle Normal left ventricular ejection fraction visually estimated at > 60%. No obvious regional wall motion abnormalities. Normal size left ventricle. Normal left ventricular wall thickness. Right Ventricle Normal right ventricular size and function. Right Atrium Normal right atrial size. Left Atrium Normal left atrial size. Mitral Valve Mitral valve thickened. Mild mitral regurgitation. Aortic Valve Aortic valve mildly thickened. No aortic stenosis. No aortic regurgitation. Tricuspid Valve Tricuspid valve not well visualized, grossly normal. Mild tricuspid regurgitation. No evidence of pulmonary hypertension. Pulmonic Valve Pulmonic valve not well visualized, grossly normal. Mild pulmonic regurgitation. Pericardium No pericardial effusion. Great Vessels Normal size aortic root. CONCLUSIONS Normal left ventricular ejection fraction visually estimated at > 60%. No obvious regional wall motion abnormalities. Mild mitral regurgitation. Mild tricuspid regurgitation. No evidence of pulmonary hypertension. Mild pulmonic regurgitation. Jaiden Martinez M.D. (Electronically Signed) Final Date: 21 September 2017 20:20 MEASUREMENTS (Male / Female) Normal Values 2D ECHO LV Diastolic Diameter PLAX 4.9 cm 4.2 - 5.9 / 3.9 - 5.3 cm LV Systolic Diameter PLAX 3.2 cm 2.1 - 4.0 cm LV Fractional Shortening PLAX 34.7 % 25 - 46 % LV Ejection Fraction 2D Teich 63.7 % IVS Diastolic Thickness 0.7 cm LVPW Diastolic Thickness 0.9 cm LV Relative Wall Thickness 0.3 RV Internal Dim ED PLAX 3.4 cm 1.9 - 3.8 cm LVOT Diameter 2.0 cm Aortic Root Diameter 2.8 cm LA Systolic Diameter LX 3.8 cm 3.0 - 4.0 / 2.7 - 3.8 cm LA Volume 55.0 cm 18 - 58 / 22 - 52 cm Ascending Aorta Diameter 3.3 cm DOPPLER AV Peak Velocity 170.0 cm/s AV Peak Gradient 11.6 mmHg AV Mean Velocity 118.0 cm/s AV Mean Gradient 6.0 mmHg AV Velocity Time Integral 41.9 cm LVOT Peak Velocity 94.7 cm/s LVOT Peak Gradient 3.6 mmHg LVOT Mean Velocity 56.8 cm/s LVOT Mean Gradient 2.0 mmHg LVOT Velocity Time Integral 22.2 cm LVOT Stroke Volume 69.7 cm AV Area Cont Eq vti 1.7 cm AV Area Cont Eq pk 1.8 cm MV Peak Velocity 119.0 cm/s MV Peak Gradient 5.7 mmHg MV Mean Velocity 65.1 cm/s MV Mean Gradient 2.0 mmHg Mitral E Point Velocity 82.9 cm/s Mitral A Point Velocity 90.3 cm/s Mitral E to A Ratio 0.9 MV PHT Velocity 111.0 cm/s MV Deceleration Mclean 303.0 cm/s MV Pressure Half Time 109.9 ms MV Area PHT 2.0 cm MV Deceleration Time 271.0 ms MR Peak Velocity 579.0 cm/s MR Peak Gradient 134.1 mmHg TR Peak Velocity 273.0 cm/s TR Peak Gradient 29.8 mmHg Right Atrial Pressure 10.0 mmHg Pulmonary Artery Systolic Pressure 39.8 mmHg Right Ventricular Systolic Pressure 39.8 mmHg PV Peak Velocity 80.0 cm/s PV Peak Gradient 2.6 mmHg PV Mean Velocity 56.6 cm/s PV Mean Gradient 1.0 mmHg PV Velocity Time Integral 21.6 cm LV E' Lateral Velocity 11.4 cm/s Mitral E to LV E' Lateral Ratio 7.3 LV E' Septal Velocity 7.9 cm/s Mitral E to LV E' Septal Ratio 10.5
[2017-09-22] VITALS: BP 108/64
--- NOTE | 2017-09-22 07:09 | PN- Resident CRCU ---
Subjective HPI/CRCU Issues: Bradycardia 24 Hour Events: No acute events overnight. Patient remains bradycardic and asymptomatic. Objective Vital Signs & I&O Last 8 Hrs of Vitals and I&O: . Exam General Appearance: well developed/nourished, no apparent distress, alert, awake , comfortable Head: atraumatic, normal appearance Respiratory: normal breath sounds, chest non-tender, bibasilar crackles Cardiovascular: bradycardia Gastrointestinal: soft, non-tender Extremities: no edema Cranial Nerves: normal hearing, normal speech Skin: intact, normal color Skin Temp/Moisture Exam: Warm/Dry Sepsis Skin Exam (color): Normal for Ethnicity Current Medications: Current Medications Sig/Allan Start time Last Medication Dose Route Stop Time Status Admin Acetaminophen 650 MG Q6PRN PRN 09/20 1645 AC PO Acetaminophen 1,000 MG Q6P PRN 09/20 1645 AC N/A 1 UNIT IV Atorvastatin Calcium 40 MG 1700 09/20 1700 AC 09/21 PO 1551 Atropine Sulfate 0.5 MG ONE PRN 09/20 1645 AC IV Dextrose/Sodium 1,000 ML Q13H 09/22 0815 AC Chloride IV Enoxaparin Sodium 0 .STK-MED ONE 09/20 1733 CAN SC Enoxaparin Sodium 40 MG Q24H 09/20 1637 AC 09/21 SC 1551 Melatonin 5 MG ONCE ONE 09/21 2315 DC 09/21 PO 09/21 2316 2315 Morphine Sulfate 2 MG Q6P PRN 09/20 1645 AC IV Impression/Plan Impression/Problem List Impression: 67-year-old gentleman with past medical history of hyperlipidemia was sent from the GI suite with EKG finding of junctional escape rhythm. During the time of procedure the patient was noticed to be bradycardic and the EKG rhythm showed junctional escape rhythm and hence he was sent to ED for further evaluation. Assessment: 1. Junctional Bradycardia 2. History of Hyperlipidemia Plan: * Await placement of pacemaker in the OR. * The patient can likely be monitored on telemetry postoperatively. * His Lyme titre was negative * Keep pacer pads on * If the patient becomes symptomatic or his heart rate remains below 30 for prolonged period, he can be started on dopamine * Echocardiogram - normal LVEF > 65% with no regional wall motion abnormalities. * Diet: Regular. Currently NPO for procedure * DVT Prophylaxis: SC Enoxaparin * Code Status: Full Code Problem List: 1. Bradycardia Pain Ratin Tomorrow's Labs & Rationales: BEP, Mg Plan DVT/Prophylaxis: mechanical
[2017-09-22 08:00] VITALS: BP 98/62
--- NOTE | 2017-09-22 13:24 | Operative Report ---
Operative/Inv Procedure Report Surgery Date: 09/22/17 Name of Procedure: MRI compatible dual-chamber pacemaker Pre-Operative Diagnosis: Sick sinus syndrome, symptomatic bradycardia, junctional escape rhythm Post-Operative Diagnosis: Same Estimated Blood Loss: scant Surgeon/Mechanic Assistant: Amado Thomas MD Anesthesia: local monitored anesthesi Operative/Procedure Note Note: After placement of monitoring lines patient's left chest and shoulder were prepped and draped in a sterile fashion. 1% lidocaine was used local anesthetic. Incision was made in the deltopectoral groove and carried down to prepectoralis fascia. The cephalic vein was identified and encircled. A small venotomy was made and a guidewire was passed easily into the right atrium under fluoroscopic guidance. A Medtronic ventricular pacing lead model number is [id number] was then advanced to the right ventricular outflow tract under fluoroscopic guidance. It was withdrawn into the right ventricular cavity and positioned at the right ventricular apex. The pacing threshold was 0.3 V. The current was 0.2 mA. The impedance was 1208 ohms. R waves were detected at 1-2 mV. Sheath dilator was then passed over the retained guidewire and an atrial lead model #[id number] was advanced into the right atrial appendage. P waves were measured 4.1 mV. The pacing threshold was 0.3 V with a current of 0.3 mA and an impedance of 698 ohms. The leads were tied to the cephalic vein which was occluded. They were then secured to the prepectoralis fascia with Ethibond sutures. Pacemaker pocket was fashioned over the fascia. The leads were then connected to a Medtronic dual-chamber MRI compatible permanent pacemaker. Pacemaker pocket was irrigated with antibiotic irrigation. Hemostasis achieved with electrocautery and with surgical clips. The wound was closed in layers with deep Vicryl suture followed by running Vicryl subarticular sutures. The patient tolerated the procedure well was brought to recovery room awake in stable condition. CC: Juan WHARTON,Jaiden
--- NOTE | 2017-09-22 13:43 | RADIOLOGY REPORT ---
EXAMINATION: XR PORTABLE CHEST CLINICAL INFORMATION: Pacemaker insertion COMPARISON: 09/20/2017 TECHNIQUE: Portable frontal view of the chest was obtained. FINDINGS: Left pectoral region cardiac pacemaker with transvenous leads extending to the right atrium and right ventricle. Lungs are well-inflated and clear. No pulmonary consolidation, edema, pneumothorax or pleural effusion. Cardiac silhouette is normal in size. The hilar contours are normal. No acute skeletal findings. IMPRESSION: 1. Status post insertion of a dual chamber cardiac pacemaker. 2. No acute pulmonary disease.
--- NOTE | 2017-09-22 14:41 | RADIOLOGY REPORT ---
EXAMINATION: XR PACEMAKER OR CLINICAL INFORMATION: Pacemaker insertion COMPARISON: 09/20/2017 TECHNIQUE: C-arm fluoroscopic imaging of the chest were acquired within operating room for cardiac pacemaker insertion. Fluoroscopy time: 6 minutes, 34 seconds. Dose: 10.18 rad Number of saved images: 13 FINDINGS: Fluoroscopic imaging of the chest was utilized at the time of insertion of a dual-chamber cardiac pacemaker. The pacemaker leads are in their expected positions. IMPRESSION: Fluoroscopic imaging of the chest was required for cardiac pacemaker insertion. Disease refer to the operative report.
--- NOTE | 2017-09-22 15:05 | PN- Cardiology ---
Subjective Subjective: The patient was seen this morning prior to pacemaker placement. He was feeling mostly well with occasional lightheadedness and dizziness. air sampling and monitoring revealed sinus bradycardia and junctional bradycardia with heart rates in the 30s and 20s. No chest pain. No palpitations. No syncope. No orthopnea. No diaphoresis. Objective Vital Signs and I&Os Vital Signs Date Time Temp Pulse Resp B/P B/P Pulse O2 O2 Flow FiO2 Mean Ox Delivery Rate 09/22 1600 97 Room Air 09/22 1600 97.6 62 12 150/90 97 Room Air 09/22 0800 97 Room Air 09/22 0800 98.0 32 18 98/62 97 Room Air 09/22 0000 97.3 36 16 108/64 97 Room Air Intake & Output 09/22 1600 09/22 0800 09/22 0000 09/21 1600 09/21 0800 09/21 0000 Intake Total 225 720 480 360 Output Total 425 350 550 500 700 450 Balance -200 -350 170 -20 -700 -90 Intake, IV 225 Intake, Oral 0 720 480 360 Output, Stool 0 Output, Urine 425 350 550 500 700 450 Patient 191 lb 194 lb Weight Weight Bed scale Measurement Method Physical Exam: Gen: The patient is in no acute distress HEENT: Normal nose, ears, and oropharynx. Pupils equal bilaterally. Conjunctiva normal. Neck: Supple with no JVD, no masses, and no thyromegaly Lungs: Clear to auscultation with normal respiratory effort Heart: luis, S1, S2, no murmurs. No peripheral edema, 2+ pulses in the lower extremities bilaterally Abdomen: Soft, nontender, no masses. No hepatomegaly. No splenomegaly Extremities: No clubbing or cyanosis. Normal muscle strength in the upper and lower extremities Skin: Normal skin turgor with no skin ulcers or lesions noted. Neuro: Cranial nerves intact. Sensation intact Current Medications: Current Medications Sig/Allan Start time Last Medication Dose Route Stop Time Status Admin Acetaminophen 650 MG Q6PRN PRN 09/20 1645 AC PO Acetaminophen 1,000 MG Q6P PRN 09/20 1645 DC N/A 1 UNIT IV Atorvastatin Calcium 40 MG 1700 09/20 1700 AC 09/22 PO 1641 Atropine Sulfate 0.5 MG ONE PRN 09/20 1645 AC IV Dextrose/Sodium 1,000 ML Q13H 09/22 0815 DC Chloride IV Enoxaparin Sodium 40 MG Q24H 09/20 1637 AC 09/21 SC 1551 Melatonin 5 MG ONCE ONE 09/21 2315 DC 09/21 PO 09/216 2315 Morphine Sulfate 2 MG Q6P PRN 09/20 1645 AC IV Oxycodone/ 1 TAB Q6P PRN 09/22 1600 AC Acetaminophen PO Results Last 48 Hrs of Labs/Mics: Laboratory Tests 09/22/17 0445: Anion Gap 8, Estimated GFR > 60, Glucose 115 H, Calcium 8.9, Phosphorus 4.2, Magnesium 1.9, Total Bilirubin 1.0, AST 19, ALT 43, Albumin 3.4 L 09/21/17 0525: Anion Gap 8, Estimated GFR > 60, Glucose 107 H, Calcium 9.0, Phosphorus 4.2, Magnesium 1.9, Total Bilirubin 1.2, AST 23, ALT 46, Albumin 3.5 09/21/17 0100: Troponin I < 0.01, Lyme Disease Antibody Cancelled 09/20/17 1850: Troponin I < 0.01 Microbiology 09/20 1899 UPPER RESP: Surveillance Culture - COMP 09/20 1899 GI: Surveillance Culture - COMP Assessment/Plan Assessment/Plan Assessment: * Junctional bradycardia with heart rate dropping into the 20s, intermittently symptomatic Plan: * Permanent pacemaker to be placed today by Dr. Thomas * Transfer to telemetry after pacemaker placement * Likely ready for discharge tomorrow Continue telemetry? Yes
[2017-09-22 16:00] VITALS: BP 150/90
[2017-09-22 22:53] VITALS: BP 132/74
[2017-09-23 06:38] VITALS: BP 138/82
--- NOTE | 2017-09-23 08:25 | PN- Housestaff ---
See Addendum Subjective Follow-up For: Bradycardia with junctional escape rhythm Subjective: Patient seen resting comfortably in the bed. He reports feeling very good since yesterday's pacemaker placement, with some soreness on his chest. His only other complaint is a mild headache. Patient denies shortness of breath, palpitations, or dizziness. Patient is able to ambulate well, without difficulty. Review of Systems Constitutional: Denies: chills, fever, weakness. Cardiovascular: Denies: chest pain, orthopena, palpitations, peripheral edema. Respiratory: Denies: cough, orthopnea, sputum production, wheezing. Gastrointestinal: Denies: abdominal pain, nausea, vomiting. Objective Last 24 Hrs of Vital Signs/I&O Vital Signs Date Time Temp Pulse Resp B/P B/P Pulse O2 O2 Flow FiO2 Mean Ox Delivery Rate 09/23 0638 97.8 60 18 138/82 97 Room Air 09/22 2253 98.6 60 19 132/74 96 09/22 2000 Room Air 09/22 1600 97 Room Air 09/22 1600 97.6 62 12 150/90 97 Room Air Intake & Output 09/23 1600 09/23 0800 09/23 0000 Intake Total 100 240 Output Total 900 Balance 100 -660 Intake, Oral 100 240 Output, Urine 900 Patient 80.087 kg Weight Physical Exam General Appearance: Alert, Oriented X3, Cooperative, No Acute Distress HEENT: Atraumatic, PERRLA, EOMI, Mucous Membr. moist/pink Neck: Supple, No JVD, No thryomegaly Cardiovascular: Regular Rate, Normal S1, Normal S2 Lungs: Clear to Auscultation, Normal Air Movement Abdomen: Normal Bowel Sounds, Soft, No Tenderness Neurological: Normal Gait, Normal Speech, Strength at 5/5 X4 Ext Extremities: No Clubbing, No Cyanosis, No Edema, Normal Pulses, No Tenderness/ Swelling Vascular: Normal Pulses Current Medications: Current Medications Sig/Allan Start time Last Medication Dose Route Stop Time Status Admin Acetaminophen 650 MG Q6PRN PRN 09/20 1645 AC PO Acetaminophen 1,000 MG Q6P PRN 09/20 1645 DC N/A 1 UNIT IV Atorvastatin Calcium 40 MG 1700 09/20 1700 AC 09/22 PO 1641 Atropine Sulfate 0.5 MG ONE PRN 09/20 1645 AC IV Dextrose/Sodium 1,000 ML Q13H 09/22 0815 DC Chloride IV Enoxaparin Sodium 40 MG Q24H 09/20 1637 AC 09/21 SC 1551 Fentanyl Citrate 100 MCG .STK-MED ONE 09/22 1105 DC IM 09/22 1106 Melatonin 5 MG AT BEDTIME 09/22 2315 AC PO Midazolam HCl 2 MG .STK-MED ONE 09/22 1106 DC IM 09/22 1107 Morphine Sulfate 2 MG Q6P PRN 09/20 1645 AC IV Oxycodone/ 1 TAB Q6P PRN 09/22 1600 AC 09/22 Acetaminophen PO 2251 Last 24 Hrs of Lab/Wally Results Last 24 Hrs of Labs/Mics: Laboratory Tests 09/23/17 0645: Sodium Pending, Potassium Pending, Chloride Pending, Carbon Dioxide Pending, Anion Gap Pending, BUN Pending, Creatinine Pending, BUN/Creatinine Ratio Pending , Magnesium Pending Assessment/Plan Assessment: 67-year-old gentleman with past medical history of hyperlipidemia was sent from the GI suite with EKG finding of junctional escape rhythm. Status post biventricular pacemaker placement yesterday. Assessment: 1. Junctional Bradycardia 2. History of Hyperlipidemia Plan: * Lyme titre negative * If the patient becomes symptomatic or his heart rate remains below 30 for prolonged period, he can be started on dopamine * Echocardiogram showed LVEF > 65%, no regional wall motion abnormalities. Diet: Regular DVT: Lovenox Full Code No labs tomorrow, for DC Problem List: 1. Bradycardia 2. Ventricular escape rhythm 3. Hyperlipidemia Pain Ratin Pain Location: none Pain Goal: Pain 4 or less Pain Plan: per pathway Tomorrow's Labs & Rationales: cbc bep
[2017-09-23] MEDS ORDERED: PERCOCET 5-3251 EACH PO ×4 (10:14→10:31)
--- NOTE | 2017-09-23 10:21 | Patient Discharge Instructions ---
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 week after discharge follow up Dr Thomas in one week after discharge Diet Continue normal diet: Yes Activity Full Activity/No Limits: Yes Acute Coronary Syndrome Inclusion Criteria At DC or during hospital stay patient has or had the following: ACS DIAGNOSIS No Discharge Core Measures Meds if any: Prescribed or Continued at Discharge Meds if any: NOT Prescribed or Continued at Discharge Congestive Heart Failure Inclusion Criteria At DC or during hospital stay patient has or had the following: CHF DIAGNOSIS No Discharge Core Measures Meds if any: Prescribed or Continued at Discharge Meds if any: NOT Prescribed or Continued at Discharge Cerebrovascular accident Inclusion Criteria At DC or during hospital stay patient has or had the following: CVA/TIA Diagnosis No Discharge Core Measures Meds if any: Prescribed or Continued at Discharge Meds if any: NOT Prescribed or Continued at Discharge Venous thromboembolism Inclusion Criteria VTE Diagnosis No VTE Type NONE VTE Confirmed by (Test) NONE Discharge Core Measures - Per Current guidelines, there needs to be overlap - treatment for the first 5 days of Warfarin therapy. - If discharged on Warfarin prior to 5 days of - overlap therapy, the patient will need to be - assessed for post discharge needs including - *Post discharge parental anticoagulation - *Warfarin and/or parental anticoagulation education - *Follow up date to check INR post discharge At least 5 days overlap therapy as Inpatient No Meds if any: Prescribed or Continued at Discharge Note: Overlap Therapy is Warfarin and Anticoagulant Meds if any: NOT Prescribed or Continued at Discharge
== END 2017-09-23 11:50 | DRG 244 ==
LOC: ERH 11:14 → ERHI 13:46 → EDBEDREQ 17:01 → ERHI 17:09 → ENRESERV 17:11 → CANRESERV 17:11 → ERHI 17:54 → CRI 17:54 → ENTRNSPT 18:14 → EDTRNSPTSTS 18:16 → EDTRNSPT 18:16 → CRI 18:44 → CMPTRNSPT 18:45 → CRI 09-21 11:00 → ENTRNSPT 09-22 14:32 → EDTRNSPTSTS 09-22 14:50 → CMPTRNSPT 09-22 15:19 → 1NO 09-22 22:26 → ENPENDDIS 09-23 10:33 → 1NO 09-23 11:50
PROVIDERS: Physician Assistant
PROC: 02HK3JZ Insertion of Pacemaker Lead into Right Ventricle, Percutaneous Approach (ICD-10-PCS; principal; 2017-09-22)
PROC: 02H63JZ Insertion of Pacemaker Lead into Right Atrium, Percutaneous Approach (ICD-10-PCS; principal; 2017-09-22)
PROC: 0JH606Z Insertion of Pacemaker, Dual Chamber into Chest Subcutaneous Tissue and Fascia, Open Approach (ICD-10-PCS; principal; 2017-09-22)
DX: R00.1 Bradycardia, unspecified (principal); E78.5 Hyperlipidemia, unspecified; J44.9 Chronic obstructive pulmonary disease, unspecified; I49.9 Cardiac arrhythmia, unspecified
CPT/HCPCS: 1NSP; 86618; CCU; 36415; 36592; 71045; 76000; 82436; 93005; 93010; 93306; 99291; C1785; C1898; J0131; J0690; J1650; J7042